=== PATIENT | male | born 1985 | race Caucasian/White ===

== ENCOUNTER 2018-07-23 16:27 | Emergency (ER) | payer MEDICAID, SELFPAY ==
[2018-07-23 16:28] VITALS: BP 140/74; PULSE 93; RESP 18; TEMP 36.9; O2SAT 97; BMI 27.8
--- NOTE | 2018-07-23 16:39 | EKG12_ITS ---
Test Reason : CP Blood Pressure : / mmHG Vent. Rate : 074 BPM Atrial Rate : 074 BPM P-R Int : 134 ms QRS Dur : 096 ms QT Int : 380 ms P-R-T Axes : 044 068 047 degrees QTc Int : 421 ms Normal sinus rhythm Normal ECG Confirmed by JACEK العراقي ([id number]), newspaper editor CATHERINE LIRIANO ([id number]) on 07/29/2018 10:22:31 AM Referred By: DEDRA Confirmed By:JACEK العراقي
--- NOTE | 2018-07-23 16:40 | ED.DCSUM_ITS ---
History of Present Illness Chief Complaint: Chest Pain Informant: Patient Onset: Today Narrative: Sudden epigastric tenderness half hour prior to arrival. Reports cleaning his car when he felt symptoms. Sharp in nature. Nausea vomiting x8 with no hematemesis. No melena. Denies chest pain. Reports similar symptoms in the past however less severe. Admits to tobacco history. Denies alcohol or any illicit drugs. Denies any past medical history. No family history of MT at a young age. States is on Suboxone therapy. Prior similar symptoms: Yes Past Medical History - Allergies and Home Meds Allergies/Adverse Reactions: Allergies No Known Allergies Allergy (Verified 08/19/16 00:26) Primary Care Physician: Care Physician,No Primary [Primary Care Provider] - Surgical History: no surgical history Smoking Status: Current every day smoker - Family History Paternal Family History: Reports: No pertinent history Maternal Family History: Reports: Diabetes, Hypertension, Renal Disease Review of Systems General: Denies: Chills, Fever, Sweats Eyes: Denies: Visual changes - bilaterally, Diplopia ENT: Denies: Rhinorrhea, Sore throat Cardiovascular: Denies: Chest pain, Palpitations Respiratory: Denies: Dyspnea, Cough, Dyspnea on exertion Gastrointestinal: Reports: Abdominal pain, Nausea, Vomiting. Denies: Diarrhea, Melena, Hematochezia Genitourinary: Denies: Dysuria, Hematuria, Frequency Musculoskeletal: Denies: Back pain, Extremity Pain Skin: Denies: Rash, Wounds Neurological: Denies: Headache, Weakness, Numbness Physical Exam Vital Signs/Narrative: Vital Signs Temp Pulse Resp BP Pulse Ox 07/23/18 16:28 98.5 F 93 18 140/74 H 97 Inital Vital Signs reviewed: Yes General: Well nourished, Well developed, No Acute Distress Head: Normocephalic, Atraumatic Eyes: Perrl, EOMI ENT: Moist mucous membranes, No rhinorrhea Neck: Supple, Nontender Cardiovascular: Regular rate, Regular rhythm, No murmurs Respiratory: No distress, CTA bilaterally, Chest nontender Abdomen: Soft, Nondistended, Normal bowel sounds, Tender - Epigastric tenderness without guarding or rebound. Negative Fajardo's or McBurney's tenderness. Back: Nontender, Normal Inspection Extremities: Nontender, No edema Skin: Normal color, No rash Neurological: Alert, Oriented x3, Cranial nerves II-XII grossly intact, Normal Strength, Normal Sensation Psychological: Normal affect, Normal Mood Diagnostic/Tx/Re-eval - EKG Initial EKG Interpretation: Sinus Rhythm - Sinus rhythm rate of 74, no ST or T wave changes. - Medical Decision Making Patient vitals stable, presents with epigastric discomfort. EKG normal. Work- up initially with labs chest x-ray ordered for Zofran and GI cocktail. After IV placed and blood drawn, patient stated he had to leave. No medications were given. He reported to nursing he had a warrant and needed to go. He signed out AGAINST MEDICAL ADVICE prior to discharge. ED Disposition - Plan for ED Patient: Disposition: Home or Assisted Living Diagnosis: Epigastric abdominal pain Referrals: Care Physician,No Primary [Primary Care Provider] -
--- NOTE | 2018-07-23 17:24 | ED.RN ---
PT DECIDES TO LEAVE [facility]. 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 ENCOURAGED PT TO STAY.OFFICE PRECIADO TO BEDSIDE. PT HAS WARRANT. PT BECOMES VERY IRRATE. PT SWEARING AND YELLING AT OFFICER.ATTEMPTED TO HELP PT CALL MOTHER AND /OR GIRLFRIEND..PT HANGS UP PHONE AND SCREAMS. JUST GET ME THE FUCK PUT OF HERE. OFFICER OZZY HANDCUFFS PT AND PT TRANSPORTED TO NURSING HOME
[2018-07-23 17:29] LABS: Absolute Lymphocyte Count 2.81 X10^3/ul (0.83-4.51); Absolute Neutrophil Count 7.9 X10^3/uL (2.0-7.7); Basophil# 0.02 X10^3/uL; Basophil% 0.2 % (0-1); Eosinophil# 0.12 X10^3/uL; Hematocrit 41.8 % (40-54); Hemoglobin 14.7 g/dl (13.0-16.5); Lymphocyte # 2.81 X10^3/ul (4.0); Lymphocyte % 22.8 % (19-41); Mean Corp Hgb Conc 35.2 g/gl (32-36); Mean Corpuscular Hgb 28.8 pg (27.0-32.0); Mean Corpuscular Volume 81.8 fL (80-94); Mean Platelet Vol. 10.4 fl (6.2-12.0); Monocyte# 1.46 X10^3/uL; Monocyte% 11.9 % (0-10); Neutrophil # 7.86 X10^3/uL (2.7-7.7); Neutrophil % 63.9 % (47-70); Platelet Count 289 K/mm3 (150-450); RBC Distribution Width CV 12.7 % (11.6-14.6); RBC Distribution Width SD 37.8 fl (35.1-43.9); Red Blood Count 5.11 M/mm3 (4.6-6.2); White Blood Count 12.3 K/mm3 (4.4-11.0)
[2018-07-23 17:30] LABS: POSITIVE COUNT NO; POSITIVE DIFFERENTIAL NO; POSITIVE MORPHOLOGY NO
[2018-07-23 17:48] LABS: AST(SGOT) 40 U/L (15-37); Alanine Aminotransfer ALT/SGPT 46 U/L (16-61); Albumin, Serum 4.2 g/dL (3.2-5.0); Alkaline Phosphatase 110 U/L (45-117); Anion Gap 12 (5-15); BUN 14 mg/dL (7-18); BUN/Creat Ratio 12.6 RATIO (10-20); Calcium,Total 9.6 mg/dL (8.5-10.1); Chloride 107 mmol/L (98-107); Creatinine, Serum 1.11 mg/dL (0.70-1.30); EST Glomerular Filtration Rate 81 mL/min (>60); Est Glom Filt Rate - Afr Amer 98 mL/min (>60); Estimated Creatinine Clearance 98.65 ml/min; Globulin 4.1 g/dL (2.2-4.2); Glucose 112 mg/dL (74-106); Lipase 124 U/L (73-393); Potassium 3.3 mmol/L (3.5-5.1); Protein, Total 8.3 g/dL (6.4-8.2); Sodium Level 142 mmol/L (136-145)
== END 2018-07-23 17:39 | disposition left against medical advice (07) ==
PROVIDERS: Emergency Provider Emergency Medicine
DX: R10.13 Epigastric pain (principal); R11.2 Nausea with vomiting, unspecified; Z53.21 Procedure and treatment not carried out due to patient leaving prior to being seen by health care provider; F17.200 Nicotine dependence, unspecified, uncomplicated
CPT/HCPCS: 80053; 83690; 85025; 93005; 99281; A4216

== ENCOUNTER 2018-10-01 09:00 | Emergency (ER) | payer MEDICAID, SELFPAY ==
[2018-10-01 09:01] VITALS: BP 139/99; PULSE 86; RESP 17; TEMP 36.4; O2SAT 100; BMI 22.4
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
[2018-10-01] MEDS: Ketorolac 30 MG/ML Syringe IV (09:59)
[2018-10-01] MEDS: Nalbuphine 10 MG/ML Ampul IV (09:59)
[2018-10-01] MEDS: diazePAM 5 MG Tablet 10 MG PO (09:59)
--- NOTE | 2018-10-01 09:59 | ED.DEP ---
ED Disposition - Plan for ED Patient: Disposition: Home or Assisted Living Instructions: BACK SPASM, No Trauma Prescriptions: Diazepam [Valium] 10 mg PO Q8H PRN PRN 4 Days #10 tab PRN Reason: Pain Prescription Printed Referrals: Sheron Holloway [NON-STAFF] - Additional Instructions: Hot shower, warm bath and massage for the back spasms. Motrin for pain and inflammation. Valium for the muscle relaxation. Do not drink or drive with the Valium. Follow-up with [facility] clinic if not improving. Return to the ER if leg weakness, numbness or bowel or bladder incontinence.
--- NOTE | 2018-10-01 11:42 | ED.RN ---
PT NOT IN ROOM WHEN MD BACK TO SPEAK WITH HIM PRIOR TO DISCHARGE. NO IV LOCATED IN ROOM TRASH OR BATHROOM. POSITIVE PRINTER OPERATOR ATTEMPTED TO CALL PT, PHONE DISCONNECTED. SECURITY NOTIFIED, CONTACTING POLICE.
== END 2018-10-01 11:45 | disposition home or self-care (01) ==
PROVIDERS: Emergency Provider Emergency Medicine
DX: M62.830 Muscle spasm of back (principal); M54.5 Low back pain; Z72.0 Tobacco use
CPT/HCPCS: 96374; 96375; 99285; A4216

== ENCOUNTER 2018-10-10 09:28 | Emergency (ER) | payer MEDICAID, SELFPAY ==
[2018-10-10 09:30] VITALS: BP 184/115; PULSE 124; RESP 19; TEMP 36.6; O2SAT 97; BMI 23.1
--- NOTE | 2018-10-10 09:39 | CT_ITS ---
STUDY: CT BRAIN WITHOUT CONTRAST REASON FOR EXAM: Male, 33 years old. Unresponsive. RADIATION DOSAGE (If Supplied By Facility): CTDIvol = ( 44.99 ) mGy, DLP = ( 846.73 ) mGycm TECHNIQUE: Transaxial CT imaging of the brain was performed without administration of intravenous contrast material. Individualized dose optimization techniques were used for this CT. COMPARISON: Comparison is made with prior examination of August 18, 2016. FINDINGS: Normal soft tissue structures. Normal calvarium. Normal size ventricles and extra-axial spaces for the patient's age. Normal white matter tracts of the cerebral hemispheres. Normal basal ganglia and thalami. Normal brainstem. Normal cerebellum. There is no intracranial hemorrhage. There are no findings of an acute ischemic infarction. Normal visualized paranasal sinuses. CT/Brain/Head without Contrast IMPRESSION: Normal unenhanced CT scan of the brain. Electronically Signed: Albino White, at 11:16 EDT , Service support ,
--- NOTE | 2018-10-10 09:46 | ED.RN ---
PT BROUGHT TO ER BY EMS AND PD. STATES I DIDN'T TAKE ANYTHING. PT PUPILS ARE PINPOINT AND IS ACTING LIKE HIS IS NOT SOBER. PT IS ERRATIC AND KEEPS SAYING I DON'T KNOW WHAT HAPPENED. ORDERS ENTERED FOR MEDICATION TO HELP CALM PT.
[2018-10-10] MEDS: Ziprasidone IM 20 MG/ML VIAL IM (10:02)
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
[2018-10-10 10:39] LABS: Absolute Lymphocyte Count 3.01 X10^3/uL (0.83-4.51); Absolute Neutrophil Count 4.4 X10^3/uL (2.0-7.7); Basophil# 0.03 X10^3/uL; Basophil% 0.4 % (0-1); Eosinophil# 0.13 X10^3/uL; Eosinophils% 1.5 % (0-5); Hematocrit 40.8 % (40-54); Hemoglobin 13.5 g/dL (13.0-16.5); Lymphocyte # 3.01 X10^3/ul (4.0); Lymphocyte % 35.3 % (19-41); Mean Corp Hgb Conc 33.1 g/dL (32-36); Mean Corpuscular Hgb 28.1 pg (27.0-32.0); Mean Corpuscular Volume 84.8 fL (80-94); Mean Platelet Vol. 9.8 fl (6.2-12.0); Monocyte# 0.96 X10^3/uL; Monocyte% 11.3 % (0-10); NRBC Flagged by Analyzer 0 % (0-5); Neutrophil # 4.38 X10^3/uL (2.7-7.7); Neutrophil % 51.3 % (47-70); Platelet Count 268 K/mm3 (150-450); RBC Distribution Width CV 12.9 % (11.6-14.6); RBC Distribution Width SD 39.5 fl (35.1-43.9); Red Blood Count 4.81 M/mm3 (4.6-6.2); White Blood Count 8.5 K/mm3 (4.4-11.0)
[2018-10-10 10:59] LABS: ALB/GLOB Ratio 1.1 RATIO (0.9-2.4); AST(SGOT) 22 U/L (15-37); Alanine Aminotransfer ALT/SGPT 30 U/L (16-61); Albumin, Serum 3.8 g/dL (3.2-5.0); Alkaline Phosphatase 107 U/L (45-117); Anion Gap 6 (5-15); BUN 11 mg/dL (7-18); BUN/Creat Ratio 12.5 RATIO (10-20); Calcium,Total 8.8 mg/dL (8.5-10.1); Chloride 107 mmol/L (98-107); Creatinine, Serum 0.88 mg/dL (0.70-1.30); EST Glomerular Filtration Rate 106 mL/min (>60); Est Glom Filt Rate - Afr Amer 129 mL/min (>60); Estimated Creatinine Clearance 139.17 ml/min; Globulin 3.6 g/dL (2.2-4.2); Glucose 109 mg/dL (74-106); Potassium 3.4 mmol/L (3.5-5.1); Protein, Total 7.4 g/dL (6.4-8.2); Sodium Level 139 mmol/L (136-145)
[2018-10-10] MEDS: 0.9% Normal Saline 1,000 ML 1000 ML IV (11:23)
[2018-10-10 11:47] VITALS: BP 118/75; PULSE 77; RESP 12; O2SAT 97
--- NOTE | 2018-10-10 12:17 | ED.RN ---
[facility] [place] [facility] CALLED FOR CONTACT INFORMATION FOR PATIENT. NO KNOW CONTACTS WITH WORKING NUMBERS. PER DR PUENTES PT WILL BE MONITORED IN ED UNTIL [facility] IS AVAILABLE AND PT IS ABLE TO AMBULATE OUT OF DEPARTMENT WITH [facility].
--- NOTE | 2018-10-10 12:32 | ED.RN ---
GIRLFRIEND CALLED INTO ED. INFORMED THAT LAVONNE WAS HERE, BUT WE COULD NOT RELEASE ANY MEDICATION INFORMATION. SHE WAS ASKED TO CALL A FAMILY MEMBER AND HAVE THEM COME TO THE ED. Barbara HARDY RN [id number]
[2018-10-10 13:34] VITALS: BP 110/75; PULSE 65; RESP 16; O2SAT 100
[2018-10-10 14:44] VITALS: BP 121/79; PULSE 69; RESP 16; O2SAT 100
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
== END 2018-10-10 15:21 | disposition home or self-care (01) ==
PROVIDERS: Emergency Provider Emergency Medicine
DX: F19.121 Other psychoactive substance abuse with intoxication delirium (principal); V89.2XXA Person injured in unspecified motor-vehicle accident, traffic, initial encounter; Y93.9 Activity, unspecified; Y92.9 Unspecified place or not applicable
CPT/HCPCS: 70450; 80053; 80320; 85025; 96360; 96372; 99285; J7030; G0480; J3486

== ENCOUNTER 2018-11-30 07:54 | Emergency (ER) | payer MEDICAID, SELFPAY ==
[2018-11-30 07:55] VITALS: BP 165/112; PULSE 93; RESP 20; TEMP 35.7; O2SAT 100; BMI 23.1
--- NOTE | 2018-11-30 08:08 | ED.DCSUM_ITS ---
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 Patient states that while he was walking last night he started having pain in his right groin. Half-Way through his walk it became severe and he had to stop. Resting makes it better and he states it is very mild while lying here on the bed. He denies feeling any bulge or mass in the groin area at any point in time. He points to the right groin area, several different places. He is pointing in the proximal thigh and at the area of the distal aspect of the inguinal ring. He has no discomfort in his scrotum or penis or elsewhere in the abdomen. He denies any known injury but states over the last 2 days he was doing a lot of heavy lifting and helping somebody to move. As an example, he states he lifted a dresser on top of another 1 to stack them. Past Medical History - Allergies and Home Meds Allergies/Adverse Reactions: Allergies No Known Allergies Allergy (Verified 10/10/18 09:33) Primary Care Physician: Care Physician,No Primary [Primary Care Provider] - Past Medical History: None Surgical History: no surgical history Smoking Status: Current every day smoker - Family History Paternal Family History: Reports: No pertinent history Maternal Family History: Reports: Diabetes, Hypertension, Renal Disease Review of Systems General: Denies: Chills, Fever, Sweats Eyes: Denies: Visual changes - bilaterally, Diplopia ENT: Denies: Rhinorrhea, Sore throat Cardiovascular: Denies: Chest pain, Palpitations Respiratory: Denies: Dyspnea, Cough, Dyspnea on exertion Gastrointestinal: Reports: Abdominal pain - R groin. Denies: Nausea, Vomiting, Diarrhea, Melena, Hematochezia Genitourinary: Reports: - - no testicular or penis pain/rash. Denies: Dysuria - no testicular or penis pain/rash/swelling, Hematuria, Frequency Musculoskeletal: Reports: Extremity Pain - R groin. Denies: Back pain Skin: Denies: Rash, Wounds Neurological: Denies: Headache, Weakness, Numbness Physical Exam Vital Signs/Narrative: Vital Signs Temp Pulse Resp BP Pulse Ox 11/30/18 07:55 96.3 F L 93 20 H 165/112 H 100 Inital Vital Signs reviewed: Yes General: Well nourished, Well developed, No Acute Distress Head: Normocephalic, Atraumatic Neck: Supple, Nontender Cardiovascular: Regular rate, Regular rhythm, No murmurs Respiratory: No distress, CTA bilaterally, Chest nontender Abdomen: Soft, Nontender, Nondistended, Normal bowel sounds : - - Normal penis and testicles, all nontender without mass. Patient was examined while standing. There is no bulge or palpable hernia. Patient performed a cough/Valsalva, which did not create any palpable mass in the inguinal ring. Back: Nontender. Negative for: CVA tenderness Extremities: No edema, Tenderness - In the right groin, at the biceps femoris tendon proximally mostly, and at the medial aspect of the inguinal crease. No rashes, lesions, lymphadenopathy, palpable cords Skin: Normal color, No rash, No Trauma, - - Normal skin exam in the right inguinal area, patient has shaving the hair here, facilitating the normal skin exam. Neurological: Alert, Oriented x3, Cranial nerves II-XII grossly intact, Normal Strength, Normal Sensation, Normal Gait Psychological: Normal Mood, Agitated Diagnostic/Tx/Re-eval - Medical Decision Making Certainly a kidney stone could cause pain in this area without tenderness, however he is having pain when he walks and moves his leg, and increases with active hip flexion against resistance. He has reason to have musculoskeletal pain and I suspect that is what this is. He was given an injection of Toradol. He was discharged with appropriate discharge instructions and we discussed signs and symptoms of a hernia on reasons to return. Although he was brought in in a wheelchair, he ambulated out of the ER without any apparent discomfort. ED Disposition - Plan for ED Patient: Disposition: Home or Assisted Living Diagnosis: Strain of right inguinal muscle Instructions: Groin Strain Referrals: Sheron Holloway [NON-STAFF] - 1 Week if not improving
--- NOTE | 2018-11-30 08:10 | ED.RN ---
PT ARRIVES WITH SYMPTOMS OF DRUG USE INCLUDING TREMOR AND ERRATIC BEHAVIOR. PT WAS ASKED TO REMOVE SWEATSHIRT IN ORDER TO GET A BLOOD PRESSURE. PT WAS OBSERVED HIDING UNKNOWN MATERIAL IN THE SLEEVE. SECURITY WAS CONTACTED AND PAPER GLUING OPERATOR VIVIAN ARRIVED TO SEARCH PATIENT'S BELONGINGS. PT SWEATSHIRT WAS FOUND WITH BALLED UP NEWSPAPER AND ONE INSULIN SYRINGE. NO MATERIAL WAS OBSERVED IN THE SYRINGE. PT STATES THAT HE WAS UNAWARE OF WHERE SYRINGE CAME FROM. MATERIALS WERE CONFISCATED AND DISPOSED OF IN SHARPS CONTAINER. DISPATCH WAS CONTACTED FOR INSTRUCTIONS ON DISPOSAL OF PARAPHERNALIA AND POSSIBLE REPORTING TO POLICE. DISPATCH ADVISED THAT IF NO MATERIAL WAS PRESENT IN SYRINGE THAT NO REPORT WAS NECESSARY AND THAT PARAPHERNALIA COULD BE PROPERLY DISPOSED OF. PT WAS DISCHARGED TO HOME.
[2018-11-30] MEDS: Ketorolac 60 MG/2 ML Vial IM (08:21)
== END 2018-11-30 08:24 | disposition home or self-care (01) ==
PROVIDERS: Emergency Provider Emergency Medicine
DX: S39.011A Strain of muscle, fascia and tendon of abdomen, initial encounter (principal); X58.XXXA Exposure to other specified factors, initial encounter; Y93.01 Activity, walking, marching and hiking; Y92.480 Sidewalk as the place of occurrence of the external cause; F17.200 Nicotine dependence, unspecified, uncomplicated
CPT/HCPCS: 96372; 99284

== ENCOUNTER 2019-07-12 19:58 | Emergency (ER) | payer MEDICAID, SELFPAY ==
[2019-07-12 19:59] VITALS: BP 151/106; PULSE 95; RESP 18; TEMP 36.7; O2SAT 100; BMI 28.7
--- NOTE | 2019-07-12 20:22 | CT_ITS ---
STUDY: CT SOFT TISSUE NECK WITHOUT CONTRAST REASON FOR EXAM: Male, 34 years old. TROUBLE SWALLOWING X 1 HOUR, CHOKES ON SALIVA RADIATION DOSAGE (If Supplied By Facility): CTDIvol = ( 19.29 ) mGy, DLP = ( 592.93 ) mGycm TECHNIQUE: The patient was scanned in a multi-detector CT scanner. High resolution transaxial imaging was performed without the administration of intravenous contrast material. Sagittal and coronal images were reconstructed. Individualized dose optimization techniques were used for this CT. COMPARISON: None. FINDINGS: Normal bilateral parotid glands. Normal bilateral panel laminator spaces. Normal bilateral parapharyngeal spaces. Normal bilateral carotid spaces. Normal bilateral sublingual and submandibular glands and spaces. Normal visualized nasopharynx. Normal retropharyngeal space. Normal perivertebral space. Normal visualized bilateral faucial tonsils. The visualized tongue, tongue base and oropharynx are normal. The visualized cervical lymph nodes (levels I-) are within normal size limits, and maintain normal morphology. There is no demonstrated solid or cystic mass lesion. Normal epiglottis, bilateral vallecula and hypopharynx. The pre-epiglottic and paraglottic adipose spaces are normal. Normal visualized bilateral piriform sinuses, aryepiglottic folds, vocal cords, and arytenoid-cricoid articulations. Normal subglottic trachea. Normal bilateral lobes of the thyroid gland. Normal visualized pulmonary apices. Normal visualized paranasal sinuses. Normal visualized cervical spine. CT/Soft Tissue Neck without Contr IMPRESSION: Normal unenhanced CT examination of the soft tissues of the neck. Electronically Signed: Moreno Grace MD at 21:16 EDT Tel , Service support ,
--- NOTE | 2019-07-12 20:23 | ED.VIS.GEN ---
History of Present Illness Chief Complaint: Other, Pain/Inj Informant: Patient Onset: Today Current Severity: Mild Narrative: Patient presents from drug rehab facility reporting he suddenly developed a sense of difficulty swallowing where he has to spit up his saliva. This occurred his afternoon while he was playing cards. He woke feeling fine, he indicates he did not eat or drink anything during car plane that could have caused this he has had no fever he has no throat pain just a sense that when he swallows his saliva does not go down. 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 he has no other past history, he is concerned that somehow he may have type of unspecified reaction to an unspecified substance to cause this, he has no known allergies And he assures me he was simply playing cards when all this began he did not eat anything nothing went into his mouth the area where he was playing cards was basically normal no one else is sick Past Medical History - Allergies and Home Meds Allergies/Adverse Reactions: Allergies No Known Allergies Allergy (Verified 10/10/18 09:33) Primary Care Physician: Care Physician,No Primary [Primary Care Provider] - Past Medical History: - - History of abuse of oral narcotics sober for over 3 months Surgical History: no surgical history Smoking Status: Current every day smoker - Family History Paternal Family History: Reports: No pertinent history Maternal Family History: Reports: Diabetes, Hypertension, Renal Disease Review of Systems ENT: Reports: - - Able swallowing saliva only Physical Exam Vital Signs/Narrative: Vital Signs Temp Pulse Resp BP Pulse Ox 07/12/19 19:59 98.1 F 95 18 151/106 H 100 General: Well nourished, Well developed, No Acute Distress Head: Normocephalic, Atraumatic Eyes: Perrl, EOMI ENT: Moist mucous membranes, No rhinorrhea, - - His oral cavity is unremarkable his uvula is midline no signs of exudate tonsillar swelling, his tongue is flat floor the mouth is normal he is able to swallow his saliva, his speech is normal he has no stridor or drooling he indicates he feels as if there is some type of a fullness sensation around the bony larynx palpation of the larynx head neck chest abdomen all unremarkable Neck: Supple, Nontender Cardiovascular: Regular rate, Regular rhythm, No murmurs Respiratory: No distress, CTA bilaterally, Chest nontender Abdomen: Soft, Nontender, Nondistended, Normal bowel sounds Back: Nontender, Normal Inspection Extremities: Nontender, No edema Skin: Normal color, No rash Neurological: Alert, Oriented x3, Cranial nerves II-XII grossly intact, Normal Strength, Normal Sensation Psychological: Normal affect, Normal Mood Diagnostic/Tx/Re-eval - Medical Decision Making The differential is rather extensive there is no signs of epiglottitis airway compromise it is unspecified what could have caused this he does not know of any allergic issues that he has he was not exposed to any allergens or unusual substances, he will be treated with IV fluids Toradol Benadryl Solu-Medrol given the concern for some type of reaction to an allergen, CT of the neck to evaluate airway, specifically he had no exposures to insects or bees or anything unusual claims he was not eating or drinking during the card playing The patient screening labs are all unremarkable, the CTA of the neck is negative for all airways intact no epiglottis no masses I gave the patient water to drink and he within a very short time spit the water back up, clinically I questioned him as the concept of food impaction he indicates this all began around 8 PM, he last ate at 3 PM he had no trouble eating the food which consisted of soft food no bones, He indicates when he was younger he believes a corner something got stuck in his esophagus and had to have it removed and as a youth he recalled having trouble swallowing food but not as an adult He continues to be symptomatic we do not have any gastroenterology coverage at this facility he will require transfer to tertiary care center he agrees, I spoke with [facility] transfer service and they are arranging transfer to that facility for further GI management Transfer for subspecialty management Final impression trouble swallowing suspect possible esophageal obstruction ED Disposition - Plan for ED Patient: Diagnosis: Esophageal obstruction due to food impaction Referrals: Care Physician,No Primary [Primary Care Provider] -
[2019-07-12] MEDS: DiphenhydrAMINE 50 MG/ML Syringe 25 MG IV (20:38)
[2019-07-12] MEDS: MethylPREDNISolone 125 MG/2 ML Vial IV (20:38)
[2019-07-12] MEDS: 0.9% Normal Saline 1,000 ML 999 ML IV (20:39)
[2019-07-12] MEDS: Ketorolac 30 MG/ML Syringe IV (20:39)
[2019-07-12 21:02] LABS: Absolute Neutrophil Count 7.2 X10^3/uL (2.0-7.7); Basophil# 0.08 X10^3/uL; Basophil% 0.7 % (0-1); Eosinophil# 0.39 X10^3/uL; Eosinophils% 3.5 % (0-5); Hemoglobin 16.2 g/dL (13.0-16.5); Lymphocyte % 23.2 % (19-41); Mean Corp Hgb Conc 33.8 g/dL (32-36); Mean Corpuscular Hgb 30.1 pg (27.0-32.0); Mean Corpuscular Volume 89.1 fL (80-94); Mean Platelet Vol. 10.6 fl (6.2-12.0); Monocyte# 0.81 X10^3/uL; Monocyte% 7.2 % (0-10); NRBC Flagged by Analyzer 0 % (0-5); Neutrophil # 7.22 X10^3/uL (2.7-7.7); Neutrophil % 64.6 % (47-70); Platelet Count 295 K/mm3 (150-450); RBC Distribution Width CV 12.3 % (11.6-14.6); RBC Distribution Width SD 40.2 fl (35.1-43.9); Red Blood Count 5.39 M/mm3 (4.6-6.2); White Blood Count 11.2 K/mm3 (4.4-11.0)
[2019-07-12 21:04] LABS: Anion Gap 6 (5-15); BUN 17 mg/dL (7-18); BUN/Creat Ratio 17.8 RATIO (10-20); Calcium,Total 9.7 mg/dL (8.5-10.1); Chloride 110 mmol/L (98-107); Creatinine, Serum 0.95 mg/dL (0.70-1.30); EST Glomerular Filtration Rate 96 mL/min (>60); Est Glom Filt Rate - Afr Amer 117 mL/min (>60); Estimated Creatinine Clearance 124.99 ml/min; Glucose 98 mg/dL (74-106); Potassium 4.4 mmol/L (3.5-5.1); Sodium Level 145 mmol/L (136-145)
[2019-07-12] MEDS: LORazepam 2 MG/ML Syringe 0.5 MG IV (22:02)
[2019-07-12] MEDS: Glucagon 1 MG/ML Syringe IV (22:02)
--- NOTE | 2019-07-12 23:30 | NURSING ---
[facility] ARRIVES TO ER PT. PT STATES HE SWALLOWED THE ITEM THAT WAS CAUGHT IN THE THROAT ANS DOES NOT FEEL HE NEEDS TO BE TRANSPORTED TO [facility]. DR ROMO MADE AWARE.
[2019-07-13 00:20] VITALS: BP 187/90; PULSE 90; RESP 22; O2SAT 100
--- NOTE | 2019-07-13 00:20 | ED.DEP ---
ED Disposition - Plan for ED Patient: Disposition: Home or Assisted Living Diagnosis: Esophageal obstruction due to food impaction Instructions: ED Foreign Body Esophageal Rslv Referrals: Durga Chavez MD [NON-STAFF] -
--- OUTSIDE RECORDS SUMMARY | 2019-11-23 09:08 | XMS RPT_ITS | CCD ---
:1985 External Reference #:[id number] Author Organization [facility] Care Team Providers Name Role Phone Unavailable Unavailable Unavailable Results Result Name Value Range Unit Interpretation Flag Date Location ed.pdoc on ED.PDOC LAVONNE MONTOYA Male [id number] Normal 08-22-2018 [facility] Attending provider: MARCIAL ER [id number] [facility] ([id number]) Cherrie Weber 1985 33 DOS: 08/22/18 Hx/Exam - Review of Systems All Other Systems: Pertinent Positives in HPI, All Other Sys tems Negative - Social History Smoking Status: Current every day smoker Hx Alcohol Use: No Hx Drug Use: Methamphetamine Living Conditions: Family - Physical Exam General Appearance: awake, alert, no apparent distress Eyes: PERRL, EOMI, conjunctivae clear, no discharge, no scle ral icterus Head, Ears, Nose, and Throat: TMs normal, pharynx norm al, EAC normal, mucous membranes moist, nares clear, atraumatic Neck: supple, non-tender Respiratory: lungs clear Cardiovascular: regular rate, rhythm Abdomen/GI: non tender, soft Extremity: normal range of motion, non-tender Pulses: Radial: 2+ Neurologic: no motor/sensory deficits, normal gait Psychiatric: oriented x3, calm, normal affect, no psychosis Skin Exam: warm/dry, normal color - Source of History Source of History: Nursing Notes/Vital Signs/Triage Reviewed and Agree, Additional Hx from Relatives - History of Present Illness Chief Complaint: DETOX MEDICAL CLEARANCE Additional Comments: wants detox from meth last use sunday denies cp sob nvd penelope es complaints. (Cherrie Weber) Note(s) - Physician Notes Additional Notes, See Orders for Details: 08/22/18 15:10 pt medically cleared for detox, will con tact [facility]. Pt seen and discussed c MAHOGANY (Awais George) will contact [employer] regarding plan. 08/22/18 15:03 08/22/18 1635 [employer] unable to accept patien t at this time resourses were given pt verbalized understanding. discussed with Dr George (Cat long,Cherrie) EKG - EKG EKG Interpretation: Not Applicable Discharge Screen - Discharge Discharge Problem: Drug abuse Disposition: HOME/SELF CARE Condition: Good Referrals: Call,On [Primary Care Provider] - Suleman Quiroga [Family Provider] - [facility] [Outside] Dictated By: Cherrie Weber NP Dictated Date/Time:08/22/18 1501 Electronically Signed Date/Time: 08/22/18 1640 cnco on 2018-07-31 [facility]CO Letter Text Normal 07-31-2018 [facility] ([id number]) xr hand 3v pa/lat/obl rt on 2018-07-03 XR HAND 3V * * *Final Report* * * Normal 2018 PA/LAT/OBL RT DATE OF EXAM: Jul 03 2018 1:06PM ([id number]) YAMINI 5346 - XR HAND 3V PA/LAT/OBL RT / PROCEDURE REASON: M79.641-Right hand pain * * * * Physician Interpretation * * * * History: Right hand pain FINDINGS: AP, lateral, and oblique views of the right hand h ave been obtained. The bones are well-mineralized without evidence of fracture or dislocation. There is slight widening of the scapholunate isrrael int space. Remaining joint spaces spaces appear maintained. No gross so ft tissue abnormality is seen. IMPRESSION: No acute bony abnormality is seen. There is slig ht widening of the scapholunate joint space. 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 Author Type: Clinical Palliative Senior Np Type: Progress Notes Filed: 07/03/2018 1:07 PM Note Text: NAME:Lavonne Montoya DATE: July 03, 2018 F#: [id number] Upper Extremity X-Ray(s): Hand, right COMPLETED TECH ID SIGN: CHARLY GILL PROGRESS HNO ID: [id number] Normal 07-03-2018 [facility] Author: Fabi Mckeon [place] ([id number]) Service: ? Author Type: Physician Type: Progress Notes Filed: 07/03/2018 3:50 PM Note Text: CHIEF COMPLAINT: Patient presents with: RT Hand/arm pain New Patient HISTORY OF PRESENT ILLNESS: Lavonne Montoya is a 33 year old m taiwo with a history of right hand pain since April 2018: no specific inj ury. Pain is palmar, has tingling and numbness in digits 1-2, wor se in the morning Work: [employer] PAIN EVALUATION 07/03/2018 Pain Level: 7 Pain Location: Arm-Right RT Hand RT Hand Description: Aching;Numbness;Tingling Swelling Swelling Duration Amount of Time: 1.5 Duration Units: Months Frequency: Continuous Intervention: Reposition;Relaxation;Cold Prior treatments: ice PMH: No chronic conditions PAST SURGICAL HISTORY Procedure Laterality Date - EGD W/O BRSH SPECIMEN W/BX 04-12-15 family history is not on file. ALLERGIES: ALLERGIES Allergies not on file CURRENT OUTPATIENT MEDICATIONS: Current Outpatient Medications on File Prior to Visit: Omeprazole (PRILOSEC) 40 mg capsule Take 1 capsule by mouth as directed. twice daily for two weeks then once daily until appt with Dr Emily Kelly No current facility-administered medications on file prior t o visit. REVIEW OF SYSTEMS GENERAL: no recent illness or infection HEENT: no changes in hearing or vision NECK: no neck pain RESPIRATORY: no SOB CARDIOVASCULAR: no chest pain GI: No nausea, vomiting, or diarrhea : No history of dysuria, frequency or incontinence SKIN: Negative for lesions, rash, and itching PSYCH: no mood changes HEMATOLOGY/LYMPHOLOGY no swollen nodes ENDOCRINE:no weight changes NEURO: no numbness or tingling MUSCULOSKELETAL: Negative PHYSICAL EXAMINATION: 07/03/18 1326 BP: 122/74 Pulse: 70 SpO2: 98% Weight: 99.3 kg (219 lb) Height: 185.4 cm (6' 1) General Appearance: Well appearing, NAD Skin: Skin color, texture, turgor normal, no suspicious rash es or lesions. Head:Facies normal Eyes: EOMI Ears:Normal external ear Nose/Sinuses: nose shows no asymmetry or deformity Oropharynx: Lips without lesions Neck: no assymetry, masses or scars Lungs: unlabored on room air Heart: no cyanosis, good capillary refill Extremities: no deformities present Musculoskeletal: Inspection reveals no abnormalities. No sof t tissue swelling. Full active range of motion, no pain with resisted wrist flexion or extension. Tinel's at the wrist is negative. Phal en's and reverse Phalen's are positive. Neurologic: Sensation and strength are grossly intact IMAGIN07/03/18 Final results available in epic. My review of xrays with patient in the room shows no acute abnormalities. IMPRESSION: (M79.641) Right hand pain (primary encounter diagnosis) (G56.01) Carpal tunnel syndrome of right wrist RECOMMENDATION/PLAN: 33-year-old male with likely carpal tunnel syndrome right wr ist. Recommend bracing, ice as needed, short course of anti-infla mmatories. Information given on stretching and home exercises. He will follow up with me in 4 weeks, consider injection lou nghia EMG Discussed medication dosage, usage, goals of therapy, and si de effects. Written instructions (see patient instructions) and verbal h ealth teaching given to patient, patient verbalizes understanding and agree s with treatment plan. Electronically Signed: Fabi Mckeon MD July 03, 2018 12:39 PM cnov on 2018-07-03 CNOV Office Visit (ORMDNA) Normal 07-04-19 [place] [facility] UNANGLAVONNE DICKERSON ([id number]) 1985 M [place] Date Time Provider Department ([id number]) 07/03/18 1:00 PM FABI MCKEON During your visit today, we recorded the following informati on about you: Pulse Blood pressure Weight Height 70/minute 122/74 99.3 kg 1.854 m Fabi Mckeon MD 07/03/2018 3:50 PM Signed CHIEF COMPLAINT: Patient presents with: RT Hand/arm pain New Patient HISTORY OF PRESENT ILLNESS: Lavonne long is a 33 year old male with a history of right hand pain since April 2018: no specific injury. Pain is palmar, has tingling and numbness in dig its 1-2, worse in the morning Work: [employer] PAIN EVALUATION 07/03/2018 Pain Level: 7 Pain Location: Arm-Right RT Hand RT Hand Description: Aching;Numbness;Tingling Swelling Swelling Duration Amount of Time: 1.5 Duration Units: Months Frequency: Continuous Intervention: Reposition;Relaxation;Cold Prior treatments: ice PMH: No chronic conditions PAST SURGICAL HISTORY Procedure Laterality Date - EGD W/O BRSH SPECIMEN W/BX 04-12-15 family history is not on file. ALLERGIES: ALLERGIES Allergies not on file CURRENT OUTPATIENT MEDICATIONS: Current Outpatient Medications on File Prior to Visit: Omeprazole (PRILOSEC) 40 mg capsule Take 1 capsule by mouth as directed. twice daily for two weeks then once daily until appt with Dr. Omar rosales No current facility-administered medications on file prior t o visit. REVIEW OF SYSTEMS GENERAL: no recent illness or infection HEENT: no changes in hearing or vision NECK: no neck pain RESPIRATORY: no SOB CARDIOVASCULAR: no chest pain GI: No nausea, vomiting, or diarrhea : No history of dysuria, frequency or incontinence SKIN: Negative for lesions, rash, and itching PSYCH: no mood changes HEMATOLOGY/LYMPHOLOGY no swollen nodes ENDOCRINE:no weight changes NEURO: no numbness or tingling MUSCULOSKELETAL: Negative PHYSICAL EXAMINATION: 07/03/18 1326 BP: 122/74 Pulse: 70 SpO2: 98% Weight: 99.3 kg (219 lb) Height: 185.4 cm (6' 1) General Appearance: Well appearing, NAD Skin: Skin color, texture, turgor normal, no suspicious rash es or lesions. Head:Facies normal Eyes: EOMI Ears:Normal external ear Nose/Sinuses: nose shows no asymmetry or deformity Oropharynx: Lips without lesions Neck: no assymetry, masses or scars Lungs: unlabored on room air Heart: no cyanosis, good capillary refill Extremities: no deformities present Musculoskeletal: Inspection reveals no a bnormalities. No soft tissue swelling. Full active range of motion, no pain wit h resisted wrist flexion or extension. Tinel's at the wrist is negative. Phalen's and r everse Phalen's are positive. Neurologic: Sensation and strength are grossly intact IMAGIN07/03/18 Final results availa ble in epic. My review of xrays with patient in the room shows no acute abnormalities. IMPRESSION: (M79.641) Right hand pain (primary encounter diagnosis) (G56.01) Carpal tunnel syndrome of right wrist RECOMMENDATION/PLAN: 33-year-old male with likely carpal tunnel syndrome right wr ist. Recommend bracing, ice as needed, short course of anti-infla mmatories. Information given on stretching and home exercises. He will follow up with me in 4 weeks, consider injection lou nghia EMG Discussed medication dosage, usage, goals of therapy, and si de effects. Written instructions (see patient instructions) and verbal h ealth teaching given to patient, patient verbalizes understanding and agrees with treatment plan. Electronically Signed: Fabi Mckeon MD July 03, 2018 12:39 PM Fabi Mckeon MD 07/03/2018 1:42 PM Signed Carpal Tunnel Syndrome: - entrapment of the median nerve at the wrist (see image bel ow) - most common compression neuropathy in the upper extremity - reduction in the size or space of the carpal t unnel leads to compression of the median nerve - paresthesias, pain are common symptoms - Precipitating conditions - inflammation of adjacent flexor tendons: -repetitive overuse trauma -rheumatoid arthritis - medical conditions - - diabetes mellitus - thyroid dysfunction. TREATMENT: - splinting the wrist (in a neutral position wrist splint) - splint should be worn at night (at a minimum) - can be worn during the day - usually 3-4 weeks - short-term course of NSAIDs : - meloxicam 15 m g Daily (1 tab) for 3-4 weeks to relieve inflammation. Take with food. Do not take other NSAIDs (ibuprofen, Aleve, Advil, Motrin, naproxen) while taking this medication - ice in early stages - heat with rehabilitation to promote tendon gliding - Work-related carpal tunnel syndrome may be improved with e rgonomic modifications - using keyboard or forearm supports - adjusting the height of computer keyboards - avoiding holding the wrist in a flexed position (as with dentalhygienists) - Follow up 4 weeks Consider: - injection of a corticosteroid into the carpal canal if the above are unsuccessful, but improvement may be only temporary. - iontophoresis - EMG (electromyography) to assess severity Carpal Tunnel Syndrome Rehabilitation Exercises Apply heat to the hand for 15 minutes before performing the exercises, and apply ice (a bag of crushed ice or frozen peas) to the hand for 20 minutes after each exercise session to prevent inflammation. If numbness steadily worsens, if the exercises increase th e pain, or if the pain does not improve after you have per formed the exercises for 3 to 4 weeks, call your doctor. Nerve and Tendon Gliding - With the affected hand taylor sed, make a fist with the thumb outside the fingers (1). - Extend the fingers, keeping the thumb close to the side of the hand (2). - Extend the hand at the wrist (bend it backward, toward the forearm), keeping the fingers straight (3). - With the wrist straight, extend the thumb as shown (4). - Keeping the thumb extended, extend the hand at the wrist ( 5). - Reach behind your hand and grasp the thumb wit h the thumb and forefinger of the opposite hand. Pull the thumb downward, away from the palm of your hand (6). - Repeat 10 to 15 times. - Perform the exercises 6 to 7 days a week, for 3 to 4 weeks . Referring Provider: SELF [[id number]] Allergies As of Date: 07/03/2018 (Not on File) Date Reviewed: 07/03/2018 Reviewed by: Philippe Garvin - Fully Assessed Reason for Visit: RT Hand/arm pain [Other] New Patient [172] Primary Visit Diagnosis:Right hand pain [M79.641] Other Visit Diagnosis:Carpal tunnel syndrome of right wrist [G56.01] Order(s):XR HAND GENERAL 3V PA/LAT/OBL R T [[id number]] Order #: [id number] FUTURE meloxicam (MOBIC) 15 mg tabletTake 1 tablet by mouth once daily.Disp: 30 tabletRfl: 0 Prescriptions as of 07/03/2018 Sig: MELOXICAM 15 MG TABLET Take 1 tablet by mouth once d* OMEPRAZOLE 40 MG CAPSULE,BEL* Take 1 capsule by mouth as di * Problem List As Of Date: 07/03/2018 (None) Other instructions from your clinician: Carpal Tunnel Syndrome: - entrapment of the median nerve at the wrist (see image bel ow) - most common compression neuropathy in the upper extremity - reduction in the size or space of the carpal tunnel leads to compression of the median nerve - paresthesias, pain are common symptoms - Precipitating conditions - inflammation of adjacent flexor tendons: -repetitive overuse trauma -rheumatoid arthritis - medical conditions - - diabetes mellitus - thyroid dysfunction. TREATMENT: - splinting the wrist (in a neutral position wrist splint) - splint should be worn at night (at a minimum) - can be worn during the day - usually 3-4 weeks - short-term course of NSAIDs : - meloxicam 15 mg Daily (1 t ab) for 3-4 weeks to relieve inflammation. Take with food. Do not take other NSAIDs (ibuprofen, Aleve, Advil, Motrin, naproxen) while taking this medication - ice in early stages - heat with rehabilitation to promote tendon gliding - Work-related carpal tunnel syndrome may be improved with e rgonomic modifications - using keyboard or forearm supports - adjusting the height of computer keyboards - avoiding holding the wrist in a flexed position (as with dentalhygienists) - Follow up 4 weeks Consider: - injection of a corticosteroid into the carpal canal if the above are unsuccessful, but improvement may be only temporary. - iontophoresis - EMG (electromyography) to assess severity Carpal Tunnel Syndrome Rehabilitation Exercises Apply heat to the hand for 15 minutes before performing the exercises, and apply ice (a bag of crushed ice or frozen peas) to the hand for 20 minutes after each exercise session to prevent inflammation. If numbness steadily worsens, if the exercises increase the pain, or if the pain does not improve after you have performed the exerc ises for 3 to 4 weeks, call your doctor. Nerve and Tendon Gliding - With the affected hand raised, make a fist with the thumb outside the fingers (1). - Extend the fingers, keeping the thumb close to the side of the hand (2). - Extend the hand at the wrist (bend it backward, toward the forearm), keeping the fingers straight (3). - With the wrist straight, extend the thumb as shown (4). - Keeping the thumb extended, extend the hand at the wrist ( 5). - Reach behind your hand and grasp the thumb with the thumb and forefinger of the opposite hand. Pull the thumb downward, aw ay from the palm of your hand (6). - Repeat 10 to 15 times. - Perform the exercises 6 to 7 days a week, for 3 to 4 weeks . Prescriptions ordered this encounter Disp Refills Start End MELOXICAM 15 MG TABLET 30 t* 0 07/03/2018 Route: ORAL Sig: Take 1 tablet by mouth once daily. Encounter Status:Closed by FABI MCKEON MD on 07/03/18 Summary Purpose Family History No Family History Records FoundNo Family History Records FoundNo Family History Records Found Advance Directives No Advanced Directives Records FoundNo Advanced Directives Records FoundNo Advanced Directives Records Found Additional Source Comments FOR RECORDS PERTAINING TO PATIENTS WHO ARE OR HAVE BEEN ENROLLED IN A CHEMICAL DEPENDENCY/SUBSTANCE ABUSE PROGRAM, SOME INFORMATION MAY BE OMITTED. This clinical summary was aggregated from multiple sources. Caution should be exercised in using it in the provision of clinical care. This summary normalizes information from multiple sources, and as a consequence, information in this document may materially changethe coding, format and clinical context of patient data. In addition, data may be omittedin some cases. CLINICAL DECISIONS SHOULD BE BASED ON THE PRIMARY CLINICAL RECORDS. [facility] provides no warranty or guarantee of the accuracy or completeness of information in this document. UNRECOGNIZED CONTENT PROVIDED BELOW FOR UNRECOGNIZED SECTION No Status Records FoundNo Status Records FoundNo Status Records Found UNRECOGNIZED CONTENT PROVIDED BELOW FOR UNRECOGNIZED SECTION INFORMATION SOURCE DATE CREATED AUTHOR AUTHOR'S ORGANIZATIO N 07/14/2018 DATE CREATED AUTHOR AUTHOR'S ORGANIZATIO N 07/31/2018 [facility] DATE CREATED AUTHOR AUTHOR'S ORGANIZATIO N 09/07/2018 [facility]
--- OUTSIDE RECORDS SUMMARY | 2019-11-23 09:09 | XMS RPT_ITS | CCD ---
:1985 External Reference #:[id number] Author Organization [facility] Care Team Providers Name Role Phone Unavailable Unavailable Unavailable Results Result Name Value Range Unit Interpretation Flag Date Location ed.pdoc on ED.PDOC LAVONNE MONTOYA Male [id number] Normal 08-22-2018 [facility] Attending provider: MARCIAL ER [id number] [facility] ([id number]) Cherrie Weber 1985 33 DOS: 08/22/18 Hx/Exam [...] medically cleared for detox, will con tact [employer]. Pt seen and discussed c MAHOGANY (Awais George) will contact [email or web address] regarding plan. 08/22/18 15:03 08/22/18 1635 [email or web address] unable to accept patien t at this [...] on 2018-07-31 [facility]CO Letter Text Normal 07-31-2018 [facility] ([id number]) xr hand 3v pa/lat/obl rt on 2018-07-03 XR HAND 3V * * *Final Report* * * Normal 2018 [facility] PA/LAT/OBL RT DATE OF EXAM: Jul 03 2018 1:06PM ([id number]) YAMINI 5346 - XR HAND 3V PA/LAT/OBL [...] ht widening of the scapholunate joint space. 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 Author Type: Clinical Area Field Person Type: Progress Notes Filed: 07/03/2018 1:07 PM Note Text: NAME:Lavonne Montoya DATE: July 03, 2018 F#: [id number] Upper Extremity X-Ray(s): Hand, right COMPLETED TECH ID SIGN: CHARLY GILL PROGRESS HNO ID: [id number] Normal 07-03-2018 [facility] Author: Fabi Mckeon [place] ([id number]) Service: ? Author Type: Physician Type: Progress [...] 1-2, wor se in the morning Work: [employer] PAIN EVALUATION 07/03/2018 Pain Level: 7 Pain [...] 2018-07-03 CNOV Office Visit (ORMDNA) Normal 07-04-19 [place] [facility] UNANGLAVONNE DICKERSON ([id number]) 1985 M [place] Date Time Provider Department ([id number]) 07/03/18 1:00 PM FABI MCKEON During your [...] its 1-2, worse in the morning Work: [employer] PAIN EVALUATION 07/03/2018 Pain Level: 7 Pain [...] Order(s):XR HAND GENERAL 3V PA/LAT/OBL R T [[id number]] Order #: [id number] FUTURE meloxicam (MOBIC) 15 mg tabletTake 1 [...] BE BASED ON THE PRIMARY CLINICAL RECORDS. [facility] provides no warranty or guarantee of the accuracy or completeness of information in this document. UNRECOGNIZED CONTENT PROVIDED BELOW FOR UNRECOGNIZED SECTION No Status Records FoundNo Status Records FoundNo Status Records Found UNRECOGNIZED CONTENT PROVIDED BELOW FOR UNRECOGNIZED SECTION INFORMATION SOURCE DATE CREATED AUTHOR AUTHOR'S ORGANIZATIO N 07/14/2018 [facility] DATE CREATED AUTHOR AUTHOR'S ORGANIZATIO N 07/31/2018 [facility] [place] DATE CREATED AUTHOR AUTHOR'S ORGANIZATIO N 09/07/2018 [facility]
== END 2019-07-13 00:30 | disposition home or self-care (01) ==
PROVIDERS: Emergency Provider Emergency Medicine
DX: K22.2 Esophageal obstruction (principal); F17.200 Nicotine dependence, unspecified, uncomplicated
CPT/HCPCS: 70490; 80048; 85025; 96361; 96374; 96375; 99285; J1610

== ENCOUNTER 2019-10-29 20:42 | Emergency (ER) | payer MEDICAID, SELFPAY ==
[2019-10-29 20:42] VITALS: BP 160/101; PULSE 111; RESP 18; TEMP 36.4; O2SAT 97; BMI 29.4
--- NOTE | 2019-10-29 21:30 | ED.DCSUM_ITS ---
History of Present Illness Chief Complaint: Foreign Body Informant: Patient Onset: Today Context: Sudden Onset Timing: Continuous Narrative: Patient is a 34-year-old male with history of acid reflux presenting with feeli ng of pork stuck in his esophagus. Patient states he got home from work and ate a piece of pork/corn and immediately felt a get stuck in his esophagus. He states he try to truck water to get it to pass and he could not. He is not been able to swallow his secretions since. He denies any difficulty breathing. He states that something similar happened to him earlier this year and he came to the ER. At that time he received 2 medicines to relax my throat and everything got better. Patient had an EGD about 5 years ago for acid reflux. He does not remember the results. He does not member who did it. No other complaints at this time. Past Medical History - Allergies and Home Meds Allergies/Adverse Reactions: Allergies No Known Allergies Allergy (Verified 10/29/19 20:42) Primary Care Physician: Care Physician,No Primary [Primary Care Provider] - Past Medical History: - - GERD Surgical History: no surgical history Smoking Status: Current every day smoker - Family History Paternal Family History: Reports: No pertinent history Maternal Family History: Reports: Diabetes, Hypertension, Renal Disease Review of Systems General: Denies: Chills, Fever, Sweats Eyes: Denies: Visual changes - bilaterally, Diplopia ENT: Denies: Rhinorrhea, Sore throat Cardiovascular: Denies: Chest pain, Palpitations Respiratory: Denies: Dyspnea, Cough, Dyspnea on exertion Gastrointestinal: Reports: Vomiting. Denies: Abdominal pain, Nausea, Diarrhea, Melena, Hematochezia Genitourinary: Denies: Dysuria, Hematuria, Frequency Musculoskeletal: Denies: Back pain, Extremity Pain Skin: Denies: Rash, Wounds Neurological: Denies: Headache, Weakness, Numbness Physical Exam Vital Signs/Narrative: Vital Signs Temp Pulse Resp BP Pulse Ox 10/29/19 20:42 97.5 F L 111 H 18 160/101 H 97 Inital Vital Signs reviewed: Yes General: Well nourished, Well developed, No Acute Distress Head: Normocephalic, Atraumatic Eyes: Perrl, EOMI ENT: Moist mucous membranes, No rhinorrhea, - - Patient spitting up secretions Neck: Supple, Nontender Cardiovascular: Regular rate, Regular rhythm, No murmurs Respiratory: No distress, CTA bilaterally, Chest nontender Abdomen: Soft, Nontender, Nondistended, Normal bowel sounds Back: Nontender, Normal Inspection Extremities: Nontender, No edema Skin: Normal color, No rash Neurological: Alert, Oriented x3, Cranial nerves II-XII grossly intact, Normal Strength, Normal Sensation Psychological: Normal affect, Normal Mood Diagnostic/Tx/Re-eval - Medical Decision Making Patient is evaluated for concern of retained esophageal foreign body/food bolus. He is not handling his secretions initially however his airway is intact. Phonation is normal. He is hemodynamically stable and well-appearing. Patient is given IV Zofran and glucagon with resolution of his symptoms. He is able to drink without any difficulty in the ER. He will be discharged home on PPI with instructions follow-up with surgery as he likely does need a scope given this is a recurrent issue. Patient is counseled on signs and symptoms requiring return to the emergency room. Patient verbalizes agreement and understand this plan. Patient discharged home in stable and improved condition. ED Disposition - Plan for ED Patient: Disposition: Home or Assisted Living Diagnosis: Esophageal obstruction due to food impaction Instructions: ED Foreign Body Esophageal Rslv, ED Diet Soft Prescriptions: Pantoprazole Sodium [Protonix] 20 mg PO DAILY #30 tab Transmission Status: Pending to [facility]/pharmacy #[id number] Referrals: Favian Wen MD [STAFF PHYSICIAN] -
[2019-10-29] MEDS: Glucagon 1 MG/ML Syringe IV (21:35)
[2019-10-29] MEDS: Ondansetron 4 MG/2 ML Vial IV (21:35)
[2019-10-29 22:24] VITALS: BP 142/99; PULSE 107; RESP 15; O2SAT 99
== END 2019-10-29 22:26 | disposition home or self-care (01) ==
PROVIDERS: Emergency Provider Emergency Medicine
DX: K22.2 Esophageal obstruction (principal); K21.9 Gastro-esophageal reflux disease without esophagitis; F17.200 Nicotine dependence, unspecified, uncomplicated
CPT/HCPCS: 96374; 96375; 99282; A4216; J1610; J2405

== ENCOUNTER 2020-01-24 21:18 | Emergency (ER) | payer MEDICAID, SELFPAY ==
[2020-01-24 21:20] VITALS: BP 156/101; PULSE 117; RESP 18; TEMP 36.6; O2SAT 100; BMI 27.1
--- NOTE | 2020-01-24 21:24 | ED.DCSUM_ITS ---
History of Present Illness Chief Complaint: Overdose Detail of Chief Complaint: History of opiate drug use Informant: Patient Onset: Hours Context: Sudden Onset Timing: Intermittent Quality: Respiratory arrest Location: Unknown Current Severity: - - Resolved Maximum Severity: Severe Worsened by: Snorting opiate powder Relieved by: Narcan intranasal Associated Symptoms: Patient states he has no recall Narrative: Patient is a 35-year-old male with history of opiate dependency. He was sober until December 26, 2019. He states he has been using intermittently. He denies history of hepatitis or HIV. He denies history of heart murmur, rheumatic fever, SBE or being immune suppressed. Patient states he is in a program. He was offered referral to 180 and or inpatient therapy. He states I use intermittently. He was informed if he changes his mind I would gladly make arrangements. Presently patient denies headache, ocular, visual auditory symptoms. He denies rhinorrhea or congestion. Denies sore throat. He denies cardiac respiratory symptoms. He denies nausea or vomiting. He has no other complaints. Prior similar symptoms: Yes Recent Illness/Hospitalization: No - Past Medical History (1) Opiate dependence Status: Acute Past Medical History - Allergies and Home Meds Allergies/Adverse Reactions: Allergies No Known Allergies Allergy (Verified 01/24/20 21:22) Primary Care Physician: Care Physician,No Primary [Primary Care Provider] - [facility] [STAFF PHYSICIAN] - Prior records reviewed: Yes Surgical History: no surgical history Lives: Alone Smoking Status: Current every day smoker Alcohol: Rare Drugs: - - Opiates - Family History Paternal Family History: Reports: No pertinent history Maternal Family History: Reports: Diabetes, Hypertension, Renal Disease Review of Systems General: Denies: Chills, Fever, Malaise, Subjective Eyes: Denies: Visual changes - bilaterally, Blurred Vision - bilaterally ENT: Denies: Rhinorrhea, Sore throat Cardiovascular: Denies: Chest pain, Palpitations Respiratory: Denies: Dyspnea, Cough, Dyspnea on exertion Gastrointestinal: Reports: Nausea. Denies: Abdominal pain, Vomiting, Diarrhea, Melena, Hematochezia Musculoskeletal: Denies: Myalgias, Arthralgias, Neck pain, Back pain, Swelling, Extremity Pain Skin: Denies: Rash, Wounds Neurological: Denies: Headache, Weakness, Parasthesia Psych: Denies: Depression Hematologic: Denies: Easy bruising, Easy bleeding Physical Exam Vital Signs/Narrative: Vital Signs Temp Pulse Resp BP Pulse Ox 01/24/20 21:20 97.9 F 117 H 18 156/101 H 100 Inital Vital Signs reviewed: Yes - Sinus tachycardia is due to the Narcan. General: Well nourished, Well developed, Unkempt, No Acute Distress Head: Normocephalic, Atraumatic Eyes: Perrl, EOMI. Negative for: Pale conjunctiva, Scleral icterus ENT: Moist mucous membranes, No rhinorrhea Neck: Supple, Nontender, No lymphadenopathy, No JVD Cardiovascular: Regular rhythm, No murmurs, Normal S1, Normal S2, Tachycardia Respiratory: No distress, CTA bilaterally, Chest nontender Abdomen: Soft, Nontender, Nondistended, Normal bowel sounds Rectal: Deferred Extremities: Nontender, No edema, - - No track solano were noted.. Negative for: Tenderness, Edema, Calf Tenderness Skin: Normal color, No rash, No Trauma. Negative for: Cyanosis, Diaphoresis, Jaundice Neurological: Alert, Oriented x3, Cranial nerves II-XII grossly intact, Normal Strength, Normal Sensation, Normal Gait Psychological: Normal affect Diagnostic/Tx/Re-eval - Medical Decision Making Patient had a respiratory arrest due to opiate use. He received 1 dose of Narcan intranasally. Will observe until 2200. If patient remains awake with stable vital signs he will be discharged to home. Patient was offered option of outpatient inpatient referral/treatment. He declined. Patient is awake and alert with stable vital signs. He is requesting to go home. He was discharged. ED Disposition - Plan for ED Patient: Disposition: Home or Assisted Living Diagnosis: Respiratory arrest, Opiate or related narcotic overdose, Sinus tachycardia seen on monitoring engineer Instructions: ED Opiate Abuse Referrals: Care Physician,No Primary [Primary Care Provider] - [facility] [STAFF PHYSICIAN] - As soon as possible
[2020-01-24 22:22] VITALS: BP 154/98; PULSE 91; RESP 18; O2SAT 98
== END 2020-01-24 22:22 | disposition home or self-care (01) ==
PROVIDERS: Emergency Provider Emergency Medicine
DX: T40.601A Poisoning by unspecified narcotics, accidental (unintentional), initial encounter (principal); R09.2 Respiratory arrest; Y92.9 Unspecified place or not applicable; R00.0 Tachycardia, unspecified; F17.200 Nicotine dependence, unspecified, uncomplicated
CPT/HCPCS: 99284

== ENCOUNTER → 2022-04-11 | Outpatient (CLI) | payer MEDICAID, SELFPAY ==
[2022-04-11 15:44] LABS: AST(SGOT) 50 U/L (15-37); Alanine Aminotransfer ALT/SGPT 83 U/L (16-61); Albumin, Serum 3.9 g/dL (3.2-5.0); Alkaline Phosphatase 126 U/L (45-117); Anion Gap 6 (5-15); BUN 21 mg/dL (7-18); BUN/Creat Ratio 18.9 RATIO (10-20); Calcium,Total 9.5 mg/dL (8.5-10.1); Chloride 109 mmol/L (98-107); Creatinine, Serum 1.11 mg/dL (0.70-1.30); EST Glomerular Filtration Rate 80 mL/min (>60); Est Glom Filt Rate - Afr Amer 96 mL/min (>60); Globulin 3.8 g/dL (2.2-4.2); Glucose 105 mg/dL (74-106); Protein, Total 7.7 g/dL (6.4-8.2); Sodium Level 140 mmol/L (136-145)
[2022-04-11 16:23] LABS: HIV - WCH Non-Reactive (Nonreactive); Hepatitis B Surface Antibody Reactive; Hepatitis B Surface Antigen Non-Reactive (Nonreactive)
== END | disposition home or self-care (01) ==
PROVIDERS: PCP Internal Medicine; Visit Provider Family Medicine
DX: F11.20 Opioid dependence, uncomplicated (principal)
CPT/HCPCS: 36415; 80053; 86703; 86706; 87340

== ENCOUNTER → 2022-05-16 | Outpatient (CLI) | payer BC, MEDICAID, SELFPAY ==
[2022-05-16 13:32] LABS: Absolute Lymphocyte Count 3.05 X10^3/uL (0.83-4.51); Absolute Neutrophil Count 6.9 X10^3/uL (2.0-7.7); Basophil# 0.06 X10^3/uL; Basophil% 0.5 % (0-1); Eosinophil# 0.45 X10^3/uL; Hematocrit 50.8 % (40-54); Hemoglobin 17.1 g/dL (13.0-16.5); Lymphocyte # 3.05 X10^3/ul (0.83-4.51); Lymphocyte % 27.1 % (19-41); Mean Corp Hgb Conc 33.7 g/dL (32-36); Mean Corpuscular Hgb 29.3 pg (27.0-32.0); Mean Corpuscular Volume 87.1 fL (80-94); Mean Platelet Vol. 11.1 fl (6.2-12.0); Monocyte% 6.2 % (0-10); NRBC Flagged by Analyzer 0 % (0-5); Neutrophil # 6.94 X10^3/uL (2.7-7.7); Neutrophil % 61.7 % (47-70); Platelet Count 279 K/mm3 (150-450); RBC Distribution Width CV 12.6 % (11.6-14.6); RBC Distribution Width SD 39.8 fl (35.1-43.9); Red Blood Count 5.83 M/mm3 (4.6-6.2); White Blood Count 11.3 K/mm3 (4.4-11.0)
[2022-05-16 13:43] LABS: International Normalized Ratio 0.9; Prothrombin Time (Protime)PT. 12.1 SECONDS (11.7-14.9)
[2022-05-18 13:06] LABS: Hepatitis A AB, Total Positive (Negative)
== END | disposition home or self-care (01) ==
LOC: LAB 12:58
PROVIDERS: PCP Internal Medicine; Referring Provider Family Medicine; Visit Provider Family Medicine
DX: B18.2 Chronic viral hepatitis C (principal)
CPT/HCPCS: 36415; 85025; 85610; 86708